=== PATIENT | male | born 1975 | race American Indian/Alaskan Native ===

== ENCOUNTER 2021-04-16 19:44 | Emergency (ER) | payer SELFPAY ==
--- NOTE | 2021-04-17 01:54 | Event Note ---
ED Screening Note Date of service: 04/17/21 Time: 01:52 ED Screening Note: Patient is a 45-year-old -[place] male with no past medical history presents to the ED with complaint of acute onset persistent severe headache, low back pain after he stood up and apparently had a syncopal episode with brief loss of consciousness about 6 hours ago. Patient states that prior to that that been smoking and drinking with friends but cannot remember what happened after that. Patient states that he was apparently brought to the ED for evaluation by EMS crew. Patient denies dizziness, chest pain, shortness of breath, abdominal pain, nausea, vomiting, change in vision, seizures, numbness and tingling or weakness of upper and lower extremities bilaterally. This initial assessment/diagnostic orders/clinical plan/treatment(s) is/are subject to change based on patients health status, clinical progression and re- assessment by fellow clinical providers in the ED. Further treatment and workup at subsequent clinical providers discretion. Patient/guardian urged not to elope from the ED as their condition may be serious if not clinically assessed and managed. Initial orders include: EKG, CBC, CMP, troponin, UA, UDS, blood alcohol, L-spine x-ray, head CT scan without contrast
== END 2021-04-17 05:13 | disposition left against medical advice (07) ==
LOC: ED 19:44
DX: R06.02 Shortness of breath (principal); Z53.21 Procedure and treatment not carried out due to patient leaving prior to being seen by health care provider